=== PATIENT | male | born 1975 | race Caucasian/White ===

== ENCOUNTER 2022-01-27 22:50 | Emergency (ER) | payer MEDICARE, MEDICAID ==
[~2022-01-27] VITALS: Ht 182.9 cm; Wt 81.8 kg
[2022-01-28] MEDS ORDERED: AMOX-117 PO (00:59)
[2022-01-28] MEDS ORDERED: amox tr/potassium clavulanate 875/125mg TAB PO ONE (01:00)
[2022-01-28 01:07] VITALS: BP 132/84
== END 2022-01-28 01:09 | disposition home or self-care (01) ==
LOC: ER 22:51
DX: K02.9 Dental caries, unspecified (principal); I10 Essential (primary) hypertension; E11.9 Type 2 diabetes mellitus without complications; Z79.2 Long term (current) use of antibiotics
CPT/HCPCS: 99283